=== PATIENT | male | born 1980 | race Caucasian/White ===

== ENCOUNTER → 2020-05-31 | Outpatient (CLI) | payer BC | END | disposition home or self-care (01) | LOC: LABWHC1 13:27 | PROVIDERS: ATTEND Internal Medicine | DX: Z20.822 Contact with and (suspected) exposure to COVID-19 (principal) | CPT/HCPCS: U0003; C9803; U0005 ==

== ENCOUNTER 2021-11-14 13:21 | Inpatient (IN) | payer BC ==
[2021-11-14] MEDS ORDERED: ASPIRIN 325 MG TAB PO STA (18:43)
[2021-11-14] MEDS ORDERED: ALPRAZolam 0.5 MG TAB PO PRN (18:43)
[2021-11-14] MEDS ORDERED: NITROGLYCERIN SL TABS 0.4 MG TAB SUBLINGUAL PRN (18:43)
[2021-11-14] MEDS ORDERED: ALPRAZolam 0.25 MG TAB PO PRN (18:43)
[2021-11-14] MEDS ORDERED: HEPARIN SOD,PORK IN 0.45% NACL 25,000 UNIT in 0.45% NACL 1 250ML.BAG IV SCH (18:45)
[2021-11-14] MEDS ORDERED: HEPARIN SODIUM 1,000 UN/ML (10ML VL) IV PRN (18:45)
[2021-11-14 19:41] LABS: African American GFR (CKD) >90 (>60 ml/min/1.73 sqM); Anion Gap 9 mmol/L; Blood Urea Nitrogen 11 mg/dL (9-20); Calcium 8.7 mg/dL (8.4-10.2); Carbon Dioxide 19 mmol/L (22-30); Chloride 110 mmol/L (98-107); Glucose 128 mg/dL (74-99); Non-African American GFR(CKD) >90 (>60 ml/min/1.73 sqM); Potassium 3.7 mmol/L (3.5-5.1); Sodium 138 mmol/L (137-145)
[2021-11-14 20:00] LABS: Basophils # (A) 0.1 k/uL (0-0.2); Basophils % (A) 1 %; Eosinophils # (A) 0.4 k/uL (0-0.7); Eosinophils % (A) 4 %; HCT 51.8 % (39.0-53.0); HGB 17.2 gm/dL (13.0-17.5); Lymphocytes # (A) 1.9 k/uL (1.0-4.8); Lymphocytes % (A) 18 %; MCH 30.2 pg (25.0-35.0); MCHC 33.1 g/dL (31.0-37.0); MCV 91.1 fL (80.0-100.0); Mean Platelet Volume 7.2; Monocytes # (A) 0.5 k/uL (0-1.0); Monocytes % (A) 4 %; Neutrophils # (A) 7.9 k/uL (1.3-7.7); Neutrophils % (A) 72 %; Platelet Count 274 k/uL (150-450); RBC 5.68 m/uL (4.30-5.90); RDW 12.3 % (11.5-15.5)
[2021-11-14] MEDS: SODIUM CHLORIDE 0.9% 1,000 ML in EMPTY BAG 1 BAG IV SCH (20:08)
[2021-11-14] MEDS: NICOTINE 14MG/24HR PATCH TRANSDERM SCH (20:10)
[2021-11-15] MEDS ORDERED: ASPIRIN 325 MG TAB PO ONE (05:00)
[2021-11-15] MEDS ORDERED: ATORVASTATIN 80 MG TAB PO ONE (05:00)
[2021-11-15] MEDS ORDERED: HEPARIN SODIUM,PORCINE 10,000 UNIT in SODIUM CHLORIDE 0.9% 1,000 ML IRRIGATION PRN (07:00)
[2021-11-15] MEDS ORDERED: HEPARIN SODIUM,PORCINE 2,500 UNIT in SODIUM CHLORIDE 0.9% 250 ML IRRIGATION PRN (07:00)
[2021-11-15 07:41] LABS: Basophils # (A) 0.1 k/uL (0-0.2); Basophils % (A) 1 %; Eosinophils # (A) 0.5 k/uL (0-0.7); Eosinophils % (A) 5 %; HCT 54.3 % (39.0-53.0); HGB 17.4 gm/dL (13.0-17.5); Lymphocytes # (A) 2.4 k/uL (1.0-4.8); Lymphocytes % (A) 23 %; MCH 29.5 pg (25.0-35.0); MCV 92.2 fL (80.0-100.0); Mean Platelet Volume 7.4; Monocytes # (A) 0.6 k/uL (0-1.0); Monocytes % (A) 6 %; Neutrophils # (A) 6.8 k/uL (1.3-7.7); Neutrophils % (A) 65 %; Platelet Count 281 k/uL (150-450); RBC 5.89 m/uL (4.30-5.90); RDW 12.4 % (11.5-15.5); WBC 10.4 k/uL (3.8-10.6)
[2021-11-15 07:54] LABS: African American GFR (CKD) >90 (>60 ml/min/1.73 sqM); Anion Gap 8 mmol/L; Blood Urea Nitrogen 10 mg/dL (9-20); Calcium 8.9 mg/dL (8.4-10.2); Carbon Dioxide 23 mmol/L (22-30); Chloride 110 mmol/L (98-107); Glucose 96 mg/dL (74-99); Magnesium 2.2 mg/dL (1.6-2.3); Non-African American GFR(CKD) >90 (>60 ml/min/1.73 sqM); Potassium 4.6 mmol/L (3.5-5.1); Sodium 141 mmol/L (137-145)
[2021-11-15] MEDS ORDERED: ASPIRIN 325 MG TAB PO STA (07:57)
--- NOTE | 2021-11-15 08:03 | P.HPIM ---
History of Present Illness This is a pleasant 41 years old male with past medical history of psoriatic arthritis presents to the hospital because of chest pain, central about a few hours prior to coming to the hospital. Also the pain radiating to the left arm or jaw. Nonspecific in character. No associated nausea vomiting or diarrhea. No lightheadedness. He has mildly elevated troponin when he went to [facility] EKG showing no definitive ischemic changes of ST segment. ProBNP not elevated. 2-D echocardiogram showed left ventricular ejection fraction 60-65%, no pericardial effusion. The cardia appears thickened. Patient was treated with IV heparin, aspirin, Vicryl intact and high dose statin, Dehydrogenation Converter Helper evaluated the patient and he underwent cardiac cath yesterday . Which showed significant coronary artery disease involving mid to distal RCA 80% blockage and mid LAD blockage 60-70% Patient was transferred from [facility] for cardiac cath and PCI Patient this morning denies any chest pain, no dyspnea, no headache or dizziness. No abdominal pain or vomiting or diarrhea. No dysuria or urgency. He states he smokes about 1 pack per day and he was counseled to quit and agree, currently he is having nicotine patch. Occasional and no illicit drugs. Review of Systems Review of systems CONSTITUTIONAL: No fever, no malaise, no fatigue. HEENT: No recent visual problems or hearing problems. Denied any sore throat. CARDIOVASCULAR: No orthopnea, PND, no palpitations, no syncope. PULMONARY: No shortness of breath, no cough, no hemoptysis. GASTROINTESTINAL: No diarrhea, no nausea, no vomiting, no abdominal pain. Normoactive bowel sounds. NEUROLOGICAL: No headaches, no weakness, no numbness. HEMATOLOGICAL: Denies any bleeding or petechiae. GENITOURINARY: Denies any burning micturition, frequency, or urgency. MUSCULOSKELETAL/RHEUMATOLOGICAL: Denies any joint pain, swelling, or any muscle pain. ENDOCRINE: Denies any polyuria or polydipsia. Past Medical History Additional Past Medical History / Comment(s): psoriatic arthritis History of Any Multi-Drug Resistant Organisms: None Reported Past Surgical History: Heart Catheterization Past Anesthesia/Blood Transfusion Reactions: No Reported Reaction Past Psychological History: No Psychological Hx Reported Smoking Status: Current every day smoker Past Alcohol Use History: Rare Past Drug Use History: None Reported - Past Family History Mother Additional Family Medical History / Comment(s): maternal uncle and grandma both had TX's Medications and Allergies Home Medications Medication Instructions Recorded Confirmed Type No Known Home Medications 11/14/21 11/14/21 History Allergies Allergy/AdvReac Type Severity Reaction Status Date / Time Penicillins Allergy Unknown Verified 11/14/21 17:24 Childhood Physical Exam Vitals: Vital Signs Temp Pulse Resp BP Pulse Ox 11/15/21 04:20 97.6 F 62 18 109/74 97 11/15/21 02:00 64 17 11/14/21 23:24 98.2 F 62 17 106/66 96 11/14/21 20:20 64 17 11/14/21 20:05 97.3 F L 66 16 115/75 97 11/14/21 16:40 97.8 F 66 17 122/80 98 11/14/21 16:30 64 17 Intake and Output 11/14/21 11/14/21 11/15/21 14:59 22:59 06:59 Intake Total 240 31.974 Balance 240 31.974 Intake: Intake, IV Titration 31.974 Amount Heparin Sod,Pork in 0.45% 31.974 NaCl 25,000 unit In 0.45 % NaCl 1 250ml.bag @ 12 UNITS/KG/HR 9.689 mls/hr IV .Q24H [facility] Rx#: [id number] Oral 240 Other: Voiding Method Toilet Toilet # Voids 1 2 Weight 80.739 kg GENERAL: The patient is alert and oriented x3, not in any acute distress. Well developed, well nourished. HEENT: Pupils are round and equally reacting to light. EOMI. No scleral icterus. No conjunctival pallor. Normocephalic, atraumatic. No pharyngeal erythema. No thyromegaly. CARDIOVASCULAR: S1 and S2 present. No murmurs, rubs, or gallops. PULMONARY: Chest is clear to auscultation, no wheezing or crackles. ABDOMEN: Soft, nontender, nondistended, normoactive bowel sounds. No palpable organomegaly. MUSCULOSKELETAL: No joint swelling or deformity. EXTREMITIES: No cyanosis, clubbing, or pedal edema. NEUROLOGICAL: Gross neurological examination did not reveal any focal deficits. SKIN: No rashes. no petechiae. Results CBC & Chem 7: 11/15/21 05:22 11/15/21 05:22 Labs: Abnormal Lab Results - Last 24 Hours (Table) 11/14/21 11/14/21 11/14/21 Range/Units 19:24 19:24 22:28 WBC 11.0 H (3.8-10.6) k/uL Neutrophils # 7.9 H (1.3-7.7) k/uL APTT 34.4 H (22.0-30.0) sec Chloride 110 H (98-107) mmol/L Carbon Dioxide 19 L (22-30) mmol/L Glucose 128 H (74-99) mg/dL 11/15/21 Range/Units 05:22 WBC (3.8-10.6) k/uL Neutrophils # (1.3-7.7) k/uL APTT 50.2 H (22.0-30.0) sec Chloride (98-107) mmol/L Carbon Dioxide (22-30) mmol/L Glucose (74-99) mg/dL Thrombosis Risk Factor Assmnt - Choose All That Apply Any of the Below Risk Factors Present?: Yes Each Factor Represents 1 point: Acute TX, Age 41-60 years, Obesity (BMI >25) Other Risk Factors: No Other congenital or acquired thrombophilia - If yes, enter type in comment: No Thrombosis Risk Factor Assessment Total Risk Factor Score: 3 Thrombosis Risk Factor Assessment Level: Moderate Risk Assessment and Plan Assessment: non stemi status post cardiac cath showing 80% stenosis of the mid to distal RCA and 60-70% stenosis of the LAD History OF severe psoriasis arthritis Hyperlipidemia Nicotine dependence, patient already counseled to quit Mild leukocytosis, mostly reactive Plan: This is a pleasant 41 years old male who presents with non-STEMI Dehydrogenation Converter Helper on proton plan for cardiac cath and PCI to his stenosis RCA and LAD per Dehydrogenation Converter Helper Continue with aspirin and Vicryl intact Continue with stenting Continue with heparin drip Labs and medication were reviewed.. Continue same treatment. Continue with symptomatic treatment. Resume home medication. Monitor lytes and vitals. DVT and GI prophylaxis. Further recommendations as per clinical course of the patient DVT prophylaxis: heparin GI Prophylaxis: Pepcid Prognosis is guarded
[2021-11-15] MEDS: FAMOTIDINE 20 MG/2 ML VIAL IV SCH ×2 (08:56→23:23)
[2021-11-15] MEDS: NICOTINE 14MG/24HR PATCH TRANSDERM SCH ×2 (09:01→23:23)
[2021-11-15] MEDS: SODIUM CHLORIDE 0.9% 1,000 ML in EMPTY BAG 1 BAG IV SCH ×3 (09:10→23:00)
[2021-11-15] MEDS ORDERED: VERAPAMIL 2.5 MG/ML 2 ML AMP ONE (12:05)
[2021-11-15] MEDS ORDERED: HEPARIN SODIUM 1,000 UN/ML (10ML VL) ONE (12:05)
[2021-11-15] MEDS ORDERED: fentaNYL (PF) 50 MCG/ML 2 ML AMP ONE (12:05)
[2021-11-15] MEDS ORDERED: fentaNYL (PF) 50 MCG/ML 2 ML AMP IVP ONE (12:08)
[2021-11-15] MEDS ORDERED: MIDAZOLAM 2 MG/2 ML VIAL IVP ONE ×3 (12:08→12:15)
[2021-11-15] MEDS ORDERED: LIDOCAINE 1% INJ 10MG/ML (30 ML VIAL-PF) SQ ONE (12:09)
[2021-11-15] MEDS ORDERED: TICAGRELOR 90 MG TAB PO ONE (12:10)
[2021-11-15] MEDS ORDERED: VERAPAMIL SYRINGE (5 MG/10 ML) INTRAARTER ONE (12:10)
[2021-11-15] MEDS ORDERED: HEPARIN SODIUM 1,000 UN/ML (10ML VL) IVP ONE ×2 (12:10→12:22)
[2021-11-15] MEDS ORDERED: TICAGRELOR 90 MG TAB ONE (12:12)
[2021-11-15] MEDS ORDERED: SODIUM CHLORIDE 0.9% 1,000 ML IV ONE (12:16)
[2021-11-15] MEDS ORDERED: NITROGLYCERIN 1000MCG/10ML SYRINGE INTRACORON ONE ×2 (12:22→12:26)
[2021-11-15] MEDS ORDERED: IOPAMIDOL-370 125ML BTL INJ ONE (12:59)
[2021-11-15] MEDS ORDERED: RX INFO: IV CONTRAST WAS GIVEN 1 EACH MISC MISCELLANE PRN (13:11)
[2021-11-15] MEDS ORDERED: MAG HYDROX/AL HYDROX/SIMETH 30 ML CUP PO PRN (13:11)
[2021-11-15] MEDS ORDERED: ZOLPIDEM 5 MG TAB PO PRN (13:11)
[2021-11-15] MEDS ORDERED: ATROPINE SULFATE 0.1 MG/ML 10ML SYRINGE IV PRN (13:11)
[2021-11-15] MEDS ORDERED: NITROGLYCERIN SL TABS 0.4 MG TAB SUBLINGUAL PRN (13:11)
--- NOTE | 2021-11-15 13:11 | P.PRCINT ---
Percutaneous Coronary Int. - Percutaneous Coronary Intervention Percutaneous Coronary Intervention: PROCEDURES PERFORMED: Bilateral coronary angiography, iFR LAD, PCI distal RCA with 3.0 x 18 mm Xience TONIE, post dilated with a 3.5 NC balloon INDICATION: Non-STEMI, obstructive disease by previous diagnostic catheteriz ation CONSENT:I have discussed the risks, benefits and alternative therapies for the above-mentioned procedure and for both sedation/analgesia as well as necessary blood product administration, if indicated, as they pertain to this patient. The patient has indicated understanding and acceptance of the risks and procedures discussed. PROCEDURE: After the risks, benefits and alternatives of the above mentioned procedure explained in detail with the patient, informed consent was obtained. Patient was taken to the catheterization lab and prepped and draped in usual fashion. 1% lidocaine was used to anesthetize the right radial artery. A 6- Singaporean sheath was placed in the right radial artery using modified Seldinger technique. The decision was made to perform PCI of the RCA. A 6-Singaporean AL 0.75 guide was used to engage RCA. A 0.014 BMW wire was advanced as the distal RCA. Predilation was performed with a 2.5 x 12 mm balloon. Next a 3.0 x 18 mm Xience TONIE was advanced into the distal RCA and deployed. The stent was postdilated with a 3.5 noncompliant balloon. Next the decision was made to perform iFR of the LAD. The left main was somewhat of a superior takeoff and difficulty engaging with a 6-Singaporean CLS 3.0, 6-Singaporean CLS 2.5 and 6-Singaporean FL 3.5 guide. Using a 6-Singaporean FL 3.0 guide the left main was engaged. A 0.014 pressure wire was advanced into the proximal left main and normalize. The wire was then advanced 1 cm distal to the LAD lesion and iFR was performed and was normal at 0.93. The wire was then removed. The right radial sheath was removed and a TR band was placed with hemostasis achieved. The patient tolerated the procedure well. Patient was transported back to the post catheterization holding area in stable condition. Conscious Sedation: Patient was monitored under the direct supervision of vision of myself for conscious sedation using Versed and fentanyl for a total duration of 52 minutes HEMODYNAMICS: Aorta: 127/69 SELECTIVE CORONARY ARTERIOGRAPHY: LEFT MAIN: The left main is a large caliber vessel which bifurcates into the LAD and circumflex. There is no significant stenosis. LEFT ANTERIOR DESCENDING CORONARY ARTERY: LAD is a large caliber vessel which wraps around to the apex. There is a mid LAD 60-70% stenosis, iFR normal at 0.93. Otherwise there are mild luminal irregularities. LEFT CIRCUMFLEX CORONARY ARTERY: Left circumflex is a moderate caliber vessel without significant stenosis. RIGHT CORONARY ARTERY: The right coronary artery is a large caliber vessel which gives off a PDA and PLV branch and is the dominant vessel. There is a proximal RCA 30-40% stenosis and a distal 80% RCA stenosis. FINAL IMPRESSION: 1. CAD as described above including proximal RCA 30% stenosis, 80% distal RCA stenosis, mid LAD 60-70% stenosis and otherwise mild luminal irregularities 2. S/p PCI distal RCA with 3.0 x 18 mm Xience TONIE, post dilated with a 3.5 NC balloon 3. iFR mid LAD normal at 0.93 PLAN: 1. Aggressive risk factor modification per most recent ACC/AHA guidelines. 2. Continue dual antiplatelets with aspirin and Brilinta for 12 months. 3. iFR mid LAD normal and therefore continue medical therapy.
[2021-11-15] MEDS: METOPROLOL SUCCINATE (ER) 25 MG TAB.ER.24H PO SCH (15:56)
[2021-11-15] MEDS: ACETAMINOPHEN TAB 325 MG TAB PO PRN (15:56)
[2021-11-16] MEDS: SODIUM CHLORIDE 0.9% 1,000 ML in EMPTY BAG 1 BAG IV SCH ×2 (06:50→08:10)
[2021-11-16] MEDS: FAMOTIDINE 20 MG/2 ML VIAL IV SCH (08:10)
[2021-11-16] MEDS: METOPROLOL SUCCINATE (ER) 25 MG TAB.ER.24H PO SCH (08:10)
[2021-11-16] MEDS: ACETAMINOPHEN TAB 325 MG TAB PO PRN (08:16)
[2021-11-16] MEDS ORDERED: ASPIRIN 81 MG PO SCH (09:00)
[2021-11-16] MEDS ORDERED: TICAGRELOR 90 MG TAB PO SCH (09:00)
[2021-11-16 09:35] LABS: African American GFR (CKD) >90 (>60 ml/min/1.73 sqM); Anion Gap 13 mmol/L; Blood Urea Nitrogen 8 mg/dL (9-20); Calcium 9.3 mg/dL (8.4-10.2); Carbon Dioxide 19 mmol/L (22-30); Chloride 109 mmol/L (98-107); Glucose 104 mg/dL (74-99); Magnesium 1.7 mg/dL (1.6-2.3); Non-African American GFR(CKD) >90 (>60 ml/min/1.73 sqM); Potassium 3.9 mmol/L (3.5-5.1); Sodium 141 mmol/L (137-145)
[2021-11-16 11:18] VITALS: BMI 28.7
[2021-11-16 11:49] VITALS: BP 121/75; PULSE 69; RESP 15; TEMP 98.3
--- NOTE | 2021-11-16 12:38 | P.PN ---
Subjective Progress Note Date: 11/16/21 HISTORY OF PRESENT ILLNESS: This is a 41-year-old male who underwent cardiac catheterization with Dr. Diez yesterday revealing proximal RCA 30% stenosis, 80% distal RCA stenosis, mid LAD 60-70% stenosis and otherwise mild luminary irregularities. Patient underwent stenting of RCA. iFR mid LAD was found to be normal at 0.93. Patient examined this morning at the bedside. Patient denies chest pain or pressure. He denies shortness of breath. He has not been doing without difficulty. Vital signs are stable. He is hoping to be discharged home today. PHYSICAL EXAM: VITAL SIGNS: Reviewed. GENERAL: Well-developed in no acute distress. NECK: Supple. No JVD or thyromegaly LUNGS: Respirations even and unlabored. Lungs essentially clear to auscultation bilaterally. HEART: Regular rate and rhythm. S1 and S2 heard. EXTREMITIES: Normal range of motion. No clubbing or cyanosis. Peripheral pulses intact. No lower extremity edema ASSESSMENT: Coronary artery disease, status post stenting of the RCA PLAN: Continue current cardiac medications Patient is currently stable for discharge home today from a cardiac standpoint Patient to follow up outpatient with Dr. Diez Nurse practitioner note has been reviewed by physician. Signing provider agrees with the documented findings, assessment, and plan of care. Objective - Vital Signs Vital signs: Vital Signs Temp 98.3 F 11/16/21 11:48 Pulse 69 11/16/21 11:48 Resp 15 11/16/21 11:48 BP 121/75 11/16/21 11:48 Pulse Ox 96 11/16/21 11:48 FiO2 Intake & Output 11/15/21 11/16/21 11/16/21 18:59 06:59 18:59 Intake Total 50 540 Output Total 450 Balance -400 540 Weight 80.739 kg Intake: IV 50 Oral 540 Output: Urine 450 Other: Voiding Method Toilet Toilet Toilet # Voids 1 2 1 - Labs CBC & Chem 7: 11/15/21 05:22 11/16/21 08:42 Labs: Abnormal Lab Results - Last 24 Hours (Table) 11/16/21 Range/Units 08:42 Chloride 109 H (98-107) mmol/L Carbon Dioxide 19 L (22-30) mmol/L BUN 8 L (9-20) mg/dL Glucose 104 H (74-99) mg/dL
--- NOTE | 2021-11-16 20:26 | P.DS ---
Providers Date of admission: 11/14/21 16:30 Attending physician: Westley Barrera MD Consults: 11/14/21 18:42 Consult Physician Routine Consulting Provider: Estevan Diez Consult Reason/Comments: nstemi; [facility] needing stents Do you want consulting provider notified?: Already Contacted 11/15/21 13:11 Consult Physician Routine Consulting Provider: [facility] Consult Reason/Comments: Post Interventional Patient Do you want consulting provider notified?: Already Contacted Primary care physician: Stated None Hospital Course: Diagnoses non stemi status post cardiac cath showing 80% stenosis of the mid to distal RCA and 60-70% stenosis of the LAD. Status post PCI to the RCA. History OF severe psoriasis arthritis Hyperlipidemia Nicotine dependence, patient already counseled to quit Mild leukocytosis, mostly reactive Hospital course: This is a pleasant 41 years old male with past medical history of psoriatic arthritis presents to the hospital because of chest pain, central about a few hours prior to coming to the hospital. Also the pain radiating to the left arm or jaw. 2-D echocardiogram showed left ventricular ejection fraction 60-65%, no pericardial effusion. , The neurologist evaluated the patient and he underwent cardiac cath yesterday . Which showed significant coronary artery disease involving mid to distal RCA 80% blockage and mid LAD blockage 60- 70% Patient was transferred from [facility] to [facility] to [facility] for cardiac cath and PCI. Patient underwent for another cardiac cath in this facility and he is status post PCI to the RCA. He tolerated the procedure well. Today he denies any chest pain or dyspnea, he is fully awake and oriented and no abdominal pain or vomiting or diarrhea, no change in urine habits. No fever All scripts for sent to the pharmacy by speedboat operator team Poultry Raiser cleared the patient for discharge Importance of adherence to therapy is explained including dual antiplatelet therapy Problems and management plan were discussed with the patient and he verbalized understanding and acceptance Patient was found stable and can be discharged home however he needs follow-up as an outpatient. Patient was instructed to follow up with PCP within one week and patient agrees Patient was instructed to call his medical insurance provider to find PCP in one week and he agrees Patient was instructed to follow up with Dr. Diez in 1 week and he agrees with the appointments made for him on 11/23 Physical exam Gen: patient is a AAOx3, no distress CVS: S1-S2, RRR, no murmur Lungs: B/L CTA, no wheezing Abdomen: soft, no distention, no tenderness, positive bowel sounds Extremity: no leg edema or induration Time spent more than 35 minutes Plan - Discharge Summary Discharge Rx Participant: No New Discharge Prescriptions: New Aspirin 81 mg PO DAILY #90 tab Ticagrelor [Brilinta] 90 mg PO BID #180 tab Atorvastatin [Lipitor] 80 mg PO HS #90 tab Nitroglycerin Sl Tabs [Nitrostat] 0.4 mg SUBLINGUAL Q5M PRN #100 tab PRN Reason: Chest Pain Metoprolol Succinate (ER) [Toprol XL] 25 mg PO DAILY #90 tab Discharge Medication List Aspirin 81 mg PO DAILY #90 tab 11/16/21 [Rx] Atorvastatin [Lipitor] 80 mg PO HS #90 tab 11/16/21 [Rx] Metoprolol Succinate (ER) [Toprol XL] 25 mg PO DAILY #90 tab 11/16/21 [Rx] Nitroglycerin Sl Tabs [Nitrostat] 0.4 mg SUBLINGUAL Q5M PRN #100 tab 11/16/21 [Rx] Ticagrelor [Brilinta] 90 mg PO BID #180 tab 11/16/21 [Rx] Follow up Appointment(s)/Referral(s): Estevan Diez DO [STAFF PHYSICIAN] - 11/23/21 11:30 am Patient Instructions/Handouts: Heart Attack (DC) Activity/Diet/Wound Care/Special Instructions: heart healthy diet activity is restricted till you see your doctor please contact your health insurance provider to fine a nearby primary care doctor, then call to make appointment in one week Discharge Disposition: HOME SELF-CARE
[2021-11-16] MEDS ORDERED: ATORVASTATIN 80 MG TAB PO SCH (21:00)
== END 2021-11-16 13:44 | disposition home or self-care (01) | DRG 247 ==
LOC: 3SCARD 16:30
PROVIDERS: ADMIT Internal Medicine; ATTEND Internal Medicine
PROC: 027034Z Dilation of Coronary Artery, One Artery with Drug-eluting Intraluminal Device, Percutaneous Approach (ICD-10-PCS; principal; 2021-11-15 12:00)
PROC: 4A033BC Measurement of Arterial Pressure, Coronary, Percutaneous Approach (ICD-10-PCS; principal; 2021-11-15 12:00)
PROC: B2111ZZ Fluoroscopy of Multiple Coronary Arteries using Low Osmolar Contrast (ICD-10-PCS; principal; 2021-11-15 12:00)
DX: I21.4 Non-ST elevation (NSTEMI) myocardial infarction (principal); I25.10 Atherosclerotic heart disease of native coronary artery without angina pectoris; L40.50 Arthropathic psoriasis, unspecified; E78.5 Hyperlipidemia, unspecified; D72.829 Elevated white blood cell count, unspecified; E66.9 Obesity, unspecified; Z68.28 Body mass index [BMI] 28.0-28.9, adult; F17.210 Nicotine dependence, cigarettes, uncomplicated; Z71.6 Tobacco abuse counseling; Z71.3 Dietary counseling and surveillance; Z88.0 Allergy status to penicillin; Z82.49 Family history of ischemic heart disease and other diseases of the circulatory system
CPT/HCPCS: 80048; 83036; 83735; 85025; 85730; 93799

== ENCOUNTER → 2022-01-05 | Outpatient (CLI) | payer BC ==
[2022-01-05 16:28] LABS: LDL Cholesterol,Calculated 66.9 mg/dL (0.0-131.0)
== END | disposition home or self-care (01) ==
LOC: LABWHC1 11:26
PROVIDERS: ATTEND Internal Medicine Clinical Cardiac Electrophysiology
DX: E78.5 Hyperlipidemia, unspecified (principal)
CPT/HCPCS: 36415; 80061

== ENCOUNTER → 2024-06-30 | Outpatient (CLI) | payer BC | END | disposition home or self-care (01) | LOC: LABWHC1 09:10 | PROVIDERS: ATTEND Family Medicine | DX: E27.0 Other adrenocortical overactivity (principal) | CPT/HCPCS: 36415; 82088; 82626; 83835; 84244 ==